=== PATIENT | male | born 1995 | race Caucasian/White ===

== ENCOUNTER → 2016-09-10 | Outpatient (CLI) | payer BC ==
--- NOTE | 2016-09-10 16:43 | DI ---
Indication: ITS.REASON: N50.811 RT TESTICULAR PAIN PROCEDURE: US TESTICULAR: Encounter: Initial Comparison: Testicular ultrasound dated March 29, 2013 FINDINGS: Both testicles are present in expected location. The testicles demonstrate a homogenous echotexture without intratesticular mass. Possible tiny microcalcifications in the left testicle. The right testicle measures 4.3 x 1.9 x 2.9 cm, and the left testicle measures 4.2 x 2 x 2.5 cm. Color Doppler imaging demonstrates symmetric, arterial flow throughout both testicles. Normal pulsed Doppler arterial and venous waveforms were obtained from each testicle. Small epididymal head cyst on the right measuring 0.7 x 0.2 x 0.2 cm. Both epididymides are otherwise normal without focal mass or hyperemia. No abnormal intrascrotal fluid collections. IMPRESSION: No acute abnormality seen. .
== END ==
LOC: IMA 10:46
PROVIDERS: ATTEND Family Medicine
DX: N50.811 Right testicular pain (principal)